=== PATIENT | female | born 1985 | race African-American/Black ===

== ENCOUNTER 2017-11-06 17:27 | Emergency (ER) | payer MEDICAID ==
[~2017-11-06] VITALS: Ht 180.3 cm; Wt 70.3 kg
[2017-11-06 17:38] VITALS: Ht 180.3 cm; Wt 70.3 kg
[2017-11-06 22:23] VITALS: BP 127/72
== END 2017-11-06 22:23 | disposition home or self-care (01) ==
LOC: ED 17:27
DX: S16.1XXA Strain of muscle, fascia and tendon at neck level, initial encounter (principal); S09.90XA Unspecified injury of head, initial encounter; M54.6 Pain in thoracic spine; R42 Dizziness and giddiness; W22.8XXA Striking against or struck by other objects, initial encounter; Y93.89 Activity, other specified; Y92.89 Other specified places as the place of occurrence of the external cause; Y99.8 Other external cause status
CPT/HCPCS: 90715